=== PATIENT | female | born 1955 | race Caucasian/White ===

== ENCOUNTER 2022-12-14 13:29 | Outpatient (CLI) | payer MEDICARE, OTHER, SELFPAY ==
--- NOTE | ~2022-12-14 | CT_ITS ---
EXAMINATION: CT shoulder LT wo con DATE: 12/14/2022 14:02 INDICATION: Left shoulder osteoarthritis for preoperative planning TECHNIQUE: High resolution computed tomography (CT) of the left shoulder was performed without intrav enous contrast. Additional sagittal and coronal reconstructions were performed. Automated exposure co ntrol and iterative reconstruction technique were employed. The dose-length product was 495.88 mGy-cm . COMPARISON: None FINDINGS: No fracture. Advanced left glenohumeral osteoarthritis with remodeling and loss of bone stock involvi ng the posterior two thirds of the glenoid resulting in approximately 20-25 degree retroversion of th e remodeled portion of the glenoid. There is also remodeling of the humeral head with loss of bone st ock and increased radius of curvature of the articular surface at the medial side of the humeral head . Central osteophytes are seen at the superomedial aspect of the humeral head along the cephalad suman in of the region of remodeling. Mild to moderate acromioclavicular osteoarthritis. Upper thoracic lev oscoliosis with moderate thoracic and lower cervical spondylosis. Mild pleural parenchymal scarring a t the posterolateral left apex. Atherosclerotic coronary artery and aortic valve calcifications. IMPRESSION: 1. Advanced left glenohumeral osteoarthritis. Reviewed, dictated and finalized at location A. LESS TEAM MEMBER
== END 2022-12-14 13:30 | disposition home or self-care (01) ==
LOC: ANHIMG 13:36
PROVIDERS: Visit Provider Orthopaedic Surgery
DX: M19.012 Primary osteoarthritis, left shoulder (principal)
CPT/HCPCS: 73200

== ENCOUNTER 2023-02-22 10:07 | Outpatient (CLI) | payer MEDICARE, OTHER, SELFPAY ==
--- NOTE | 2023-02-22 11:08 | ECG_ITS ---
Measurements Intervals [place] Rate: 90 P: 63 TN: 162 QRS: 257 QRSD: 105 T: 62 QT: 370 QTc: 454 Interpretive Statements SINUS RHYTHM POSSIBLE LEFT ATRIAL ENLARGEMENT [-0.1mV P WAVE IN V1/V2] INDETERMINATE AXIS INCOMPLETE RIGHT BUNDLE BRANCH BLOCK [90+ ms QRS DURATION, TERMINAL R IN V1/V2, 40+ ms S IN I/aVL/V4/V5/V6] LEFT POSTERIOR FASCICULAR BLOCK [QRS AXIS > 109, INFERIOR Q] NO PREVIOUS ECG AVAILABLE FOR COMPARISON Electronically Signed On 02-22-2023 12:58:37 CDT by Eugene Berry M.D.
[2023-02-22 12:14] LABS: Basophils Absolute Auto 0.1 K/mm3 (0.0-0.1); Basophils Percent Auto 0.7 % (0.2-1.2); Eosinophils Absolute Auto 0.1 K/mm3 (0-0.3); Eosinophils Percent Auto 0.7 % (0-4.4); Hematocrit 38.7 % (37.0-47.0); Hemoglobin 12.8 g/dL (12.0-15.0); Immature Granulocyte Absolute 0.02 K/mm3 (0.00-0.031); Immature Granulocyte Percent A 0.3 % (0-0.5); Lymphocytes Absolute Auto 1.67 K/mm3 (0.9-3.2); Lymphocytes Percent Auto 21.7 % (18.3-44.2); Mean Corpuscular HGB Conc 33.1 g/dl (32-36); Mean Corpuscular Hemoglobin 30.1 pg (26-34); Mean Corpuscular Volume 91.1 fl (80-100); Mean Platelet Volume 10.1 fl (7.4-10.4); Monocytes Absolute Auto 0.5 K/mm3 (0.1-0.6); Monocytes Percent Auto 6.6 % (2.6-8.5); Neutrophils Absolute Auto 5.4 K/mm3 (1.3-6.7); Platelet Count Result 226 k/mm3 (150-375); Red Blood Count 4.25 M/mm3 (4.2-5.4); Red Cell Distribution Width 12.5 % (11.5-14.5); White Blood Count 7.7 K/mm3 (4.5-10.0)
== END 2023-02-22 10:08 | disposition home or self-care (01) ==
LOC: ANHSURGERY 10:13
PROVIDERS: Visit Provider Orthopaedic Surgery
DX: M19.012 Primary osteoarthritis, left shoulder (principal); Z01.818 Encounter for other preprocedural examination; I45.10 Unspecified right bundle-branch block
CPT/HCPCS: 36415; 85025; 87081; 93005